=== PATIENT | female | born 1995 | race Two or more races ===

== ENCOUNTER 2021-05-25 08:37 | Observation (INO) | payer MEDICAID ==
[2021-05-25] MEDS ORDERED: PREN-96 PO (13:40)
== END 2021-05-25 14:28 | disposition home or self-care (01) ==
LOC: LDRP 08:37
PROVIDERS: ADMIT Obstetrics & Gynecology; ATTEND Obstetrics & Gynecology
DX: O62.9 Abnormality of forces of labor, unspecified (principal); O48.0 Post-term pregnancy; Z3A.40 40 weeks gestation of pregnancy
CPT/HCPCS: 59025; 76818; 81002; G0378

== ENCOUNTER 2021-05-27 07:53 | Inpatient (IN) | payer BC, MEDICAID ==
[~2021-05-27] VITALS: Ht 165.1 cm; Wt 115.7 kg
[~2021-05-27 07:53] MED LIST: PREN-96 PO
[2021-05-27] MEDS ORDERED: DERMOPLAST 60ML BOTTLE TOP PRN (10:30)
[2021-05-27] MEDS ORDERED: BUTORPHANOL TARTRATE 2 MG/1 ML VIAL IV PRN ×2 (10:30)
[2021-05-27] MEDS ORDERED: LACTATED RINGER'S 1,000 ML IV SCH (10:30)
[2021-05-27] MEDS ORDERED: LIDOCAINE 2%HCL (LOCAL ANESTH.) INJ 20ML MDV IJ PRN ×2 (10:30→17:30)
[2021-05-27] MEDS ORDERED: WITCH HAZEL-GLYCERIN PAD TOP PRN (10:30)
[2021-05-27] MEDS ORDERED: PHISODERM TOP SOLN 240ML BTL TOP PRN (10:30)
[2021-05-27] MEDS ORDERED: PROMETHAZINE HCL 25 MG/ML 1ML IV PRN (10:30)
[2021-05-27 11:14] LABS: Basophils # (auto) 0 10 ^3/uL (0-0.2); Basophils % (auto) 0.4 % (0.0-2.0); Eosinophils # (auto) 0.1 10 ^3/uL (0-0.8); Eosinophils % (auto) 0.7 % (0.0-7.0); Hematocrit 37.4 % (36.0-46.0); Hemoglobin 12.6 g/dL (12.2-16.2); Lymphocytes # (auto) 1.5 10 ^3/uL (0.4-5.4); Lymphocytes % (auto) 18.2 % (10.0-50.0); Mean Corpuscular Hemoglobin 27.1 pg (28.0-32.0); Mean Corpuscular Hgb Conc. 33.6 g/dL (32.0-36.0); Mean Corpuscular Volume 80.9 fL (80.0-100.0); Monocytes # (auto) 0.6 10 ^3/uL (0-1.3); Monocytes % (auto) 7.6 % (0.0-12.0); Neutrophils # (auto) 6.1 10 ^3/uL (1.6-8.6); Neutrophils % (auto) 73.1 % (37.0-80.0); Nucleated Red Blood Cells % 0.1 %; Red Blood Cells 4.63 10^6/uL (4.0-5.20); White Blood Cell 8.4 10^3/uL (4.4-10.8)
[2021-05-27 11:22] LABS: INR 0.94 (0.9-1.15); Partial Thromboplastin Time 27.9 sec (23.6-33.0)
[2021-05-27] MEDS ORDERED: CLINDAMYCIN 900MG IV 50 ML IV ONE (11:22)
[2021-05-27 11:28] LABS: Potassium 3.8 mmol/L (3.5-5.1)
[2021-05-27 11:43] LABS: Albumin 2.5 g/dL (3.4-5.0); BUN/Creatinine Ratio 11.9; Bilirubin, Total 0.2 mg/dL (0.2-1.0); Calcium 8.8 mg/dL (8.5-10.1)
[2021-05-27] MEDS ORDERED: LACT. RINGERS/OXYTOCIN 20UNITS 500 ML IV ONE ×2 (12:30→13:00)
[2021-05-27] MEDS ORDERED: fentaNYL CITRATE 100 MCG/2 ML VL ONE ×2 (13:14→15:16)
[2021-05-27] MEDS ORDERED: ePHEDrine SULFATE 50 MG/ML AMP ONE (13:14)
[2021-05-27] MEDS ORDERED: ROPIVACAINE HCL 200 ML EPI SCH ×2 (13:15→13:45)
[2021-05-27] MEDS ORDERED: ROPIVACAINE HCL 200 ML ONE (13:15)
[2021-05-27] MEDS ORDERED: fentaNYL CITRATE 100 MCG/2 ML VL IV ONE ×3 (13:15→15:30)
[2021-05-27] MEDS ORDERED: LIDOCAINE HCL 2 %PF INJ 10ML AMP IJ ONE ×3 (13:15→13:45)
[2021-05-27] MEDS ORDERED: LACTATED RINGER'S 1,000 ML IV ONE ×2 (13:15→14:00)
[2021-05-27] MEDS ORDERED: ePHEDrine SULFATE 50 MG/ML AMP IV ONE ×4 (13:15→15:30)
[2021-05-27] MEDS ORDERED: NALOXONE HCL 0.4 MG/ML VIAL IV ONE ×5 (13:15→15:30)
[2021-05-27 13:48] LABS: Urine Bacteria FEW /hpf (None Seen); Urine Blood 2+ /uL (Negative); Urine Mucus FEW (None Seen); Urine Specific Gravity 1.018 (1.001-1.035); Urine WBC 8 /hpf (0 - 5)
[2021-05-27 13:57] LABS: Alcohol, Urine < 3.0 mg/dL (0-10); Amphetamine Screen, Urine NEGATIVE (NEGATIVE); Barbiturate Scree,Urine NEGATIVE (NEGATIVE); Benzodiazephine Screen, Urine NEGATIVE (NEGATIVE); Cannabinoid Screen, Urine NEGATIVE (NEGATIVE); Cocaine Screen, Urine NEGATIVE (NEGATIVE); Opiate Scree,Urine NEGATIVE (NEGATIVE); Phencyclidine Screen, Urine NEGATIVE (NEGATIVE)
[2021-05-27] MEDS ORDERED: CLINDAMYCIN 900MG IV 50 ML IV SCH (14:00)
[2021-05-27] MEDS ORDERED: LIDOCAINE 2% (LOCAL ANESTH.) PF 5ml SDV ONE (15:17)
[2021-05-27] MEDS ORDERED: LIDOCAINE 2%HCL (LOCAL ANESTH.) INJ 20ML MDV IJ ONE (15:30)
[2021-05-27] MEDS ORDERED: miSOPROStol 100 mcg TAB ONE (16:48)
[2021-05-27] MEDS ORDERED: miSOPROStol 50 MCG per PRE-CUT 1/2 TAB ONE (16:48)
[2021-05-27] MEDS ORDERED: METHYLERGONOVINE MALEATE 0.2 MG/ML AMP IM ONE (16:48)
[2021-05-27] MEDS ORDERED: LIDOCAINE 2%HCL (LOCAL ANESTH.) INJ 20ML MDV ONE (16:49)
[2021-05-27] MEDS ORDERED: METHYLERGONOVINE MALEATE 0.2 MG/ML AMP IM PRN ×2 (17:00→17:15)
[2021-05-27] MEDS ORDERED: miSOPROStol 100 mcg TAB PR PRN (17:15)
[2021-05-27] MEDS ORDERED: miSOPROStol 100 mcg TAB SL PRN (17:15)
[2021-05-27] MEDS ORDERED: ACETAMINOPHEN 325 MG TAB PO PRN (18:00)
[2021-05-27] MEDS ORDERED: ONDANSETRON ODT 4 MG TAB PO PRN (18:00)
[2021-05-27] MEDS: IBUPROFEN 800 MG TAB PO SCH (18:27)
[2021-05-27 18:40] VITALS: BP 114/69
[2021-05-27] MEDS: DOCUSATE SOD 100 MG CAP PO SCH (22:00)
[2021-05-27 23:00] VITALS: BP 116/70
[2021-05-28] MEDS: IBUPROFEN 800 MG TAB PO SCH ×5 (01:37→17:52)
[2021-05-28 03:00] VITALS: BP 121/70
[2021-05-28 06:07] LABS: RPR Non Reactive (Non Reactive)
[2021-05-28 07:00] VITALS: BP 112/65
[2021-05-28 11:00] VITALS: BP 115/71
[2021-05-28 18:25] VITALS: BP 112/68
[2021-05-28] MEDS: DOCUSATE SOD 100 MG CAP PO SCH (22:31)
[2021-05-28 23:25] VITALS: BP 112/66
[2021-05-29] MEDS: IBUPROFEN 800 MG TAB PO SCH ×2 (00:48→05:58)
[2021-05-29 03:00] VITALS: BP 120/68
[2021-05-29 07:00] VITALS: BP 114/63
[2021-05-29] MEDS ORDERED: IBUP800T26 PO (08:12)
[2021-05-29] MEDS ORDERED: DOCU100C10 PO (08:12)
[2021-05-29 08:23] VITALS: BP_SYST 114
== END 2021-05-29 09:19 | disposition home or self-care (01) | DRG 806 ==
LOC: UNDOADMOB 07:53 → LDRP 07:53 → INTOOBSV 10:18 → OBSVTOIN 10:18 → LDRP 10:21
PROVIDERS: ADMIT Obstetrics & Gynecology; ATTEND Obstetrics & Gynecology
PROC: 10E0XZZ Delivery of Products of Conception, External Approach (ICD-10-PCS; principal; 2021-05-27)
PROC: 0UQGXZZ Repair Vagina, External Approach (ICD-10-PCS; 2021-05-27)
PROC: 3E0R3BZ Introduction of Anesthetic Agent into Spinal Canal, Percutaneous Approach (ICD-10-PCS; 2021-05-27)
PROC: 00HU33Z Insertion of Infusion Device into Spinal Canal, Percutaneous Approach (ICD-10-PCS; 2021-05-27)
DX: O48.0 Post-term pregnancy (principal); O71.4 Obstetric high vaginal laceration alone; Z37.0 Single live birth; Z20.822 Contact with and (suspected) exposure to COVID-19; O69.1XX0 Labor and delivery complicated by cord around neck, with compression, not applicable or unspecified; Z3A.40 40 weeks gestation of pregnancy
CPT/HCPCS: 36415; 59025; 59409; 80053; 80307; 81001; 81002; 85025; 85610; 85730; 86592; 86850; 86900; 86901; 87426; 94760; 96360; 96361; 96366; G0378; J2001; J2590; J3490